=== PATIENT | female | born 1975 | race African-American/Black ===

== ENCOUNTER 2022-09-02 07:28 | Inpatient (IN) | payer MEDICAID ==
[2022-09-01 21:49] VITALS: BP 137/93
[~2022-09-02] VITALS: Ht 160 cm; Wt 56.4 kg
[2022-09-02] MEDS ORDERED: MORPHINE SULFATE 4 MG/ML CPJ (NOT FOR IM USE) IV STA ×2 (08:51→16:08)
[2022-09-02] MEDS ORDERED: ONDANSETRON HCL 4MG/2ML INJ IV STA ×2 (08:51→16:08)
[2022-09-02 08:59] LABS: CHLORIDE 107 mEq/L (98-107)
[2022-09-02] MEDS ORDERED: SODIUM CHLORIDE 0.9% 1,000 ML IV ONE (09:00)
[2022-09-02 09:01] LABS: PROTHROMBIN TIME 10.6 sec (9.6-11.0)
[2022-09-02 09:17] LABS: HCG SCREEN NEGATIVE
[2022-09-02 09:25] LABS: BASOPHILS % 0.2 % (0.0-2.0); EOSINOPHILS % 0.1 % (0.0-5.0); HEMATOCRIT. 31.4 % (36.0-48.0); HEMOGLOBIN. 10.6 g/dL (12.0-16.0); LYMPHOCYTES % 14.3 % (20.0-50.0); MEAN CORPUSCULAR HEMOGLOBIN 29.3 pg (28.0-32.0); MEAN CORPUSCULAR VOLUME 86.9 fL (81.0-99.0); MEAN PLATELET VOLUME 9.2 fl (7.4-10.4); MONOCYTES % 6.6 % (2.0-8.0); NEUTROPHILS % 78.8 % (40.0-76.0); PLATELET 145 x1000/uL (130-400); RED BLOOD CELL COUNT 3.61 mill/uL (4.2-5.4); RED CELL DISTRIBUTION WIDTH 16.4 % (11.6-14.6)
[2022-09-02 10:16] LABS: CLARITY URINE CLEAR (CLEAR); COLOR URINE YELLOW (YELLOW); KETONES URINE NEGATIVE (NEGATIVE); LEUKOCYTE ESTERASE URINE NEGATIVE (NEGATIVE); NITRITE URINE NEGATIVE (NEGATIVE); OCCULT BLOOD URINE NEGATIVE (NEGATIVE); PROTEIN URINE NEGATIVE (NEGATIVE); SPECIFIC GRAVITY URINE 1.006 (1.005-1.030); UROBILINOGEN URINE 0.2 E.U./dL (0.2-1.0)
[2022-09-02] MEDS ORDERED: IOHEXOL-300 100 ML BOTTLE ONE (11:51)
[2022-09-02 21:31] VITALS: BP 137/81
[2022-09-02] MEDS ORDERED: ACETAMINOPHEN 325MG TABLET PO PRN (22:15)
[2022-09-02] MEDS ORDERED: ONDANSETRON HCL 4MG/2ML INJ IV PRN (22:15)
[2022-09-02] MEDS ORDERED: NALOXONE HCL 0.4MG/ML VIAL IV PRN (22:30)
[2022-09-02] MEDS: MORPHINE SULFATE 2 MG/ML CPJ (NOT FOR IM USE) IV PRN (22:33)
[2022-09-02 22:53] LABS: BASOPHILS % 0.1 % (0.0-2.0); CHLORIDE 105 mEq/L (98-107); EOSINOPHILS % 0.7 % (0.0-5.0); HEMATOCRIT. 27.1 % (36.0-48.0); LYMPHOCYTES % 24.1 % (20.0-50.0); MEAN CORPUSCULAR HEMOGLOBIN 29.6 pg (28.0-32.0); MEAN CORPUSCULAR VOLUME 88.6 fL (81.0-99.0); MEAN PLATELET VOLUME 9.1 fl (7.4-10.4); MONOCYTES % 9.4 % (2.0-8.0); NEUTROPHILS % 65.7 % (40.0-76.0); PLATELET 116 x1000/uL (130-400); RED BLOOD CELL COUNT 3.05 mill/uL (4.2-5.4); RED CELL DISTRIBUTION WIDTH 16.6 % (11.6-14.6)
[2022-09-03] VITALS (9 sets, daily range): BP systolic 94–145; BP diastolic 58–76
[2022-09-03] MEDS: CEFOXITIN SODIUM 2 G in DEXT 5% WATER 100 ML IV SCH ×5 (00:07→23:02)
[2022-09-03] MEDS: SODIUM CHLORIDE 0.9% 1,000 ML IV SCH ×2 (01:06→11:10)
[2022-09-03] MEDS: DOXYCYCLINE 100 MG in DEXT 5% WATER 100 ML IV SCH ×2 (01:06→13:02)
[2022-09-03 05:47] LABS: BASOPHILS % 0.2 % (0.0-2.0); EOSINOPHILS % 0.5 % (0.0-5.0); HEMATOCRIT. 25.2 % (36.0-48.0); HEMOGLOBIN. 8.5 g/dL (12.0-16.0); LYMPHOCYTES % 23.4 % (20.0-50.0); MEAN CORPUSCULAR HEMOGLOBIN 29.2 pg (28.0-32.0); MEAN CORPUSCULAR VOLUME 86.7 fL (81.0-99.0); MEAN PLATELET VOLUME 8.8 fl (7.4-10.4); MONOCYTES % 11.2 % (2.0-8.0); NEUTROPHILS % 64.7 % (40.0-76.0); PLATELET 110 x1000/uL (130-400); RED BLOOD CELL COUNT 2.91 mill/uL (4.2-5.4); RED CELL DISTRIBUTION WIDTH 16.2 % (11.6-14.6)
[2022-09-03 06:38] LABS: CHLORIDE 109 mEq/L (98-107); CREATINE KINASE 54 IU/L (26-192); CREATINE KINASE MB FRACTION < 1.0 ng/mL (0.5-3.6)
[2022-09-03] MEDS: MORPHINE SULFATE 2 MG/ML CPJ (NOT FOR IM USE) IV PRN ×2 (08:51→21:42)
[2022-09-03 17:04] LABS: CHLORIDE 105 mEq/L (98-107)
[2022-09-03 17:09] LABS: CREATINE KINASE 69 IU/L (26-192); CREATINE KINASE MB FRACTION < 1.0 ng/mL (0.5-3.6)
[2022-09-03] MEDS ORDERED: POTASSIUM CHLORIDE 20MEQ TABLET SR PO NR (18:45)
[2022-09-04] VITALS (16 sets, daily range): BP systolic 104–153; BP diastolic 60–98
[2022-09-04] MEDS: DOXYCYCLINE 100 MG in DEXT 5% WATER 100 ML IV SCH ×2 (00:05→11:55)
[2022-09-04] MEDS: CEFOXITIN SODIUM 2 G in DEXT 5% WATER 100 ML IV SCH ×4 (05:39→23:02)
[2022-09-04 06:35] LABS: BASOPHILS % 0.2 % (0.0-2.0); EOSINOPHILS % 0.6 % (0.0-5.0); HEMATOCRIT. 27.3 % (36.0-48.0); HEMOGLOBIN. 9.2 g/dL (12.0-16.0); LYMPHOCYTES % 21.4 % (20.0-50.0); MEAN CORPUSCULAR HEMOGLOBIN 29.6 pg (28.0-32.0); MEAN CORPUSCULAR VOLUME 87.8 fL (81.0-99.0); MEAN PLATELET VOLUME 9.1 fl (7.4-10.4); MONOCYTES % 9.4 % (2.0-8.0); NEUTROPHILS % 68.4 % (40.0-76.0); PLATELET 124 x1000/uL (130-400); RED BLOOD CELL COUNT 3.11 mill/uL (4.2-5.4)
[2022-09-04] MEDS ORDERED: LACTATED RINGERS 1,000 ML IV SCH (09:00)
[2022-09-04] MEDS: MORPHINE SULFATE 2 MG/ML CPJ (NOT FOR IM USE) IV PRN ×2 (10:18→21:32)
[2022-09-04 13:07] LABS: HEMATOCRIT 27.1 % (36.0-48.0); HEMOGLOBIN 9.1 g/dL (12.0-16.0)
[2022-09-04 15:12] LABS: UCG SCREEN NEGATIVE
[2022-09-05] VITALS: BP 113/71
[2022-09-05] MEDS: DOXYCYCLINE 100 MG in DEXT 5% WATER 100 ML IV SCH ×2 (00:10→11:52)
[2022-09-05 04:00] VITALS: BP 106/63
[2022-09-05] MEDS: CEFOXITIN SODIUM 2 G in DEXT 5% WATER 100 ML IV SCH ×2 (05:05→10:37)
[2022-09-05 06:33] LABS: HEMATOCRIT 27.5 % (36.0-48.0); HEMOGLOBIN 9.2 g/dL (12.0-16.0); MEAN CORPUSCULAR VOLUME 86.8 fL (81.0-99.0); PLATELET 128 x1000/uL (130-400); RED BLOOD CELL COUNT 3.17 mill/uL (4.2-5.4); RED CELL DISTRIBUTION WIDTH 15.9 % (11.6-14.6)
[2022-09-05 07:29] VITALS: BP 112/61
[2022-09-05 10:37] VITALS: BP 120/72
[2022-09-05] MEDS: MORPHINE SULFATE 2 MG/ML CPJ (NOT FOR IM USE) IV PRN (10:37)
[2022-09-05 10:58] VITALS: BP 120/65
[2022-09-05 12:30] VITALS: BP 120/65
== END 2022-09-05 14:15 | disposition home or self-care (01) | DRG 532 ==
LOC: ER 07:28 → EDBD 07:28 → EDBEDREQ 10:07 → 3WST 15:42 → EDBEDREQ 15:47 → EDBEDREQTM 15:47 → EDBEDREQSVC 15:47
PROVIDERS: ADMIT Internal Medicine; ATTEND Internal Medicine
DX: N83.202 Unspecified ovarian cyst, left side (principal); K66.1 Hemoperitoneum; D62 Acute posthemorrhagic anemia; R65.10 Systemic inflammatory response syndrome (SIRS) of non-infectious origin without acute organ dysfunction; I10 Essential (primary) hypertension; K52.9 Noninfective gastroenteritis and colitis, unspecified; Z20.822 Contact with and (suspected) exposure to COVID-19; R35.0 Frequency of micturition; Z82.49 Family history of ischemic heart disease and other diseases of the circulatory system; N83.201 Unspecified ovarian cyst, right side
CPT/HCPCS: 36415; 71045; 74176; 74177; 76830; 76856; 80048; 80053; 80076; 81003; 81025; 82378; 82550; 82553; 84484; 84703; 85014; 85018; 85025; 85027; 86301; 86304; 86850; 86900; 87426; 93005; 93306; 99285; C9803; J0694; J2270; J2405; J3490; J7030; J7060; J7120; Q9967